=== PATIENT | male | born 1990 | race Caucasian/White ===

== ENCOUNTER 2018-07-16 08:56 | Emergency (ER) | payer MEDICARE, MEDICAID ==
[2018-07-16] MEDS ORDERED: DIPH/PERTUSS(ACELL)/TETANUS VAC/PF 0.5 ML SYR (>=10YO) IM ONE (09:10)
--- NOTE | 2018-07-16 09:14 | ER Document Report ---
ED General - General Chief Complaint: Psych Problem Stated Complaint: SWOLLEN FEET Time Seen by Provider: 07/16/18 09:01 - HPI Notes: Patient is a 28-year-old male that presents to the emergency department for chief complaint of feet swelling and left elbow pain. Patient reports 5 days ago he elbowed a wall. He has not had a tetanus vaccine since 2004. He states that he cut his elbow and is having pain around the cut. He denies any pain with range of motion of the left elbow or any numbness and weakness in the left upper extremity. He describes the pain as mild. Patient also notes some swelling in his feet but is not sure how long they have been like that. He is accompanied by police from longterm, they do not have any report of previous edema on his feet and cannot provide any further information on his edema. He denies any lower extremity injury or pain. He denies fevers, chills, shortness of breath, chest pain, nausea, vomiting and abdominal pain. Patient is talking to someone named "Yasmine" in the room, he denies visual and auditory hallucinations. When I asked him who was noted and was he states "I do not know". When I asked him if he is here with us he states "maybe" Past Medical History: Bipolar Past Surgical History: Negative Social History: Daily tobacco. Denies drugs and alcohol Family History: Reviewed and noncontributory for presenting illness Allergies: Reviewed, see documented allergy list. REVIEW OF SYSTEMS: CONSTITUTIONAL : No fever No chills No diaphoresis No recent illness EENT: No vision changes No congestion No sore throat CARDIOVASCULAR: No chest pain No palpitations RESPIRATORY: No shortness of breath No cough No difficulty breathing GASTROINTESTINAL: No abdominal pain No nausea No vomiting No diarrhea GENITOURINARY: No dysuria No hematuria No difficulty urinating MUSCULOSKELETAL: No back pain No leg pain arm pain Leg edema SKIN: No rashes No lesions LYMPHATIC: No swollen, enlarged glands. NEUROLOGICAL: No lightheadedness No headache No weakness No paresthesias PSYCHIATRIC: No anxiety No depression PHYSICAL EXAMINATION: Vital signs reviewed, nursing noted reviewed. GENERAL: Well-appearing, well-nourished and in no acute distress. HEAD: Atraumatic, normocephalic. EYES: Eyes appear normal, extraocular movements intact, sclera anicteric, conjunctiva are normal. ENT: nares patent, oropharynx clear without exudates. Moist mucous membranes. NECK: Normal range of motion, supple without lymphadenopathy LUNGS: Breath sounds have mild end expiratory wheezing, no tachypnea, no accessory muscle use or respiratory distress HEART: Regular rate and rhythm without murmurs ABDOMEN: Soft, nontender, normoactive bowel sounds. No rebound, guarding, or rigidity. No masses appreciated. EXTREMITIES: Normal range of motion and no bony tenderness to left elbow. Nontender, good range of motion, +2 pitting edema bilateral lower extremities from feet just distal to knees, symmetric bilaterally. No calf tenderness. No lower extremity erythema. NEUROLOGICAL: No focal neurological deficits. Moves all extremities spontaneously Motor and sensory grossly intact on exam. PSYCH: Normal mood, flat affect. SKIN: Warm, Dry, normal turgor, 0.5 cm linear superficial abrasion to lateral left elbow with no active bleeding, scab overlying healing well. No surrounding erythema. Past Medical History - Social History Smoking Status: Current Every Day Smoker Family History: Reviewed & Not Pertinent Physical Exam - Vital signs Vitals: Temp Pulse Resp BP Pulse Ox 97.4 F 84 18 106/92 H 97 07/16/18 09:34 07/16/18 09:34 07/16/18 09:34 07/16/18 09:34 07/16/18 09:34 Course - Re-evaluation Re-evalutation: 07/16/18 09:13 Vitals reviewed. Nursing notes reviewed. Patient appears to be having a conversation with someone named "Yasmine" in the room. He denies any hallucinations or seeing this being. Patient has a history of bipolar as provided by police records. He is not currently on any medications daily. He denies suicidal and homicidal ideations. His left elbow has an abrasion overlying and tetanus vaccine was updated. The abrasion is healing well. He has no bony tenderness or deformity to the left elbow and x-rays are not currently indicated as fracture is not suspected. Venous duplex of the lower extremity will be obtained to evaluate for DVT as a cause of his peripheral edema. Psych consult was placed. 07/16/18 11:39 Venous duplex of bilateral lower extremities is negative. Patient's lab work is unremarkable. He was evaluated by psych who recommends Zyprexa and Cogentin for his bipolar with psychotic features. Patient will be given the first dose of these medications in the emergency room. He is resting comfortably and in no acute distress. He is not acutely psychotic and a harm to himself or others. He will be discharged back to snf in stable condition. Laboratory 07/16/18 07/16/18 09:30 09:30 WBC 4.9 RBC 4.76 Hgb 14.4 Hct 42.6 MCV 90 MCH 30.4 MCHC 33.9 RDW 14.8 H Plt Count 246 Seg Neutrophils % 61.5 Lymphocytes % 26.0 Monocytes % 10.3 Eosinophils % 1.4 Basophils % 0.8 Absolute Neutrophils 3.0 Absolute Lymphocytes 1.3 Absolute Monocytes 0.5 Absolute Eosinophils 0.1 Absolute Basophils 0.0 Sodium 142.7 Potassium 4.3 Chloride 108 H Carbon Dioxide 26 Anion Gap 9 BUN 11 Creatinine 0.70 Est GFR ( Amer) > 60 Est GFR (Non-Af Amer) > 60 Glucose 95 Calcium 9.7 Total Bilirubin 0.9 Direct Bilirubin 0.2 Neonat Total Bilirubin Not Reportable Neonat Direct Bilirubin Not Reportable Neonat Indirect Bili Not Reportable AST 23 ALT 27 Alkaline Phosphatase 54 Total Protein 6.5 Albumin 4.4 Salicylates < 1.0 L Acetaminophen < 10 L Serum Alcohol < 10 Venous Doppler Study 07/16/18 09:09 IMPRESSION: NO EVIDENCE DVT OR SVT IN EITHER LEG. - Vital Signs Vital signs: Temp Pulse Resp BP Pulse Ox 97.4 F 84 18 106/92 H 97 07/16/18 09:34 07/16/18 09:34 07/16/18 09:34 07/16/18 09:34 07/16/18 09:34 - Laboratory Result Diagrams: 07/16/18 09:30 07/16/18 09:30 Laboratory results interpreted by me: 07/16/18 07/16/18 09:30 09:30 RDW 14.8 H Chloride 108 H Salicylates < 1.0 L Acetaminophen < 10 L - EKG Interpretation by Me Additional EKG results interpreted by me: 07/16/18 10:03 Interpreted by myself [id number]: Sinus bradycardia, rate 57, normal axis, no ectopy, baseline artifact, no STEMI Discharge - Discharge Clinical Impression: Bipolar disorder with psychotic features, Dependent edema Arm abrasion Qualifiers: Encounter type: initial encounter Laterality: left Qualified Code(s): S40.812A - Abrasion of left upper arm, initial encounter Condition: Stable Disposition: HOME, SELF-CARE Instructions: Dependent Edema ([facility]), Abrasions ([facility]) Additional Instructions: Please return to the emergency department if you have any worsening, or concern of your symptoms. Please return to the emergency department if you develop chest pain, difficulty breathing, severe abdominal pain, or ongoing vomiting. Please follow-up with your primary care physician in 2-3 days and any other recommended physicians. If prescribed, take all medications as directed. If you have any questions or concerns do not hesitate to return the emergency department for evaluation. Prescriptions: Benztropine Mesylate [Cogentin 1 mg Tablet] 1 tab PO DAILY #21 tab Olanzapine [Zyprexa 5 mg Tablet] 5 mg PO Q12 21 Days tablet
[2018-07-16 09:53] LABS: ABSOLUTE EOSINOPHILS # (AUTO) 0.1 10^3/uL (0.0-0.6); ABSOLUTE LYMPHOCYTES (AUTO) 1.3 10^3/uL (0.5-4.7); ABSOLUTE MONOCYTES (AUTO) 0.5 10^3/uL (0.1-1.4); BASOPHILS % (AUTO) 0.8 % (0-2); EOSINOPHILS % (AUTO) 1.4 % (0-6); HEMATOCRIT 42.6 % (37.9-51.0); HEMOGLOBIN 14.4 g/dL (13.5-17.0); MEAN CORPUSCULAR HEMOGLOBIN 30.4 pg (27.0-33.4); MEAN CORPUSCULAR HGB CONC 33.9 g/dL (32.0-36.0); MEAN CORPUSCULAR VOLUME 90 fl (80-97); MONOCYTES % (AUTO) 10.3 % (3-13); PLATELET COUNT 246 10^3/uL (150-450); RED BLOOD COUNT 4.76 10^6/uL (4.35-5.55); RED CELL DISTRIBUTION WIDTH 14.8 % (11.5-14.0); SEGMENTED NEUTROPHILS % (AUTO) 61.5 % (42-78); TOTAL CELLS COUNTED % (AUTO) 100 %; WHITE BLOOD COUNT 4.9 10^3/uL (4.0-10.5)
[2018-07-16 10:10] LABS: ALANINE AMINOTRANSFERASE 27 U/L (21-72); ALBUMIN 4.4 g/dL (3.5-5.0); ALKALINE PHOSPHATASE 54 U/L (38-126); ANION GAP 9 (5-19); ASPARTATE AMINO TRANSFERASE 23 U/L (17-59); BILIRUBIN,DIRECT 0.2 mg/dL (0.0-0.4); BILIRUBIN,TOTAL 0.9 mg/dL (0.2-1.3); BLOOD UREA NITROGEN 11 mg/dL (7-20); CALCIUM 9.7 mg/dL (8.4-10.2); CARBON DIOXIDE 26 mmol/L (22-30); CHLORIDE 108 mmol/L (98-107); GLUCOSE 95 mg/dL (75-110); POTASSIUM 4.3 mmol/L (3.6-5.0); SODIUM 142.7 mmol/L (137-145); TOTAL PROTEIN 6.5 g/dL (6.3-8.2)
[2018-07-16 10:12] LABS: ACETAMINOPHEN < 10 ug/mL (10-30); ALCOHOL < 10 mg/dL (NONE DETECTED); SALICYLATE < 1.0 mg/dL (2.0-20.0)
--- NOTE | 2018-07-16 10:38 | RADIOLOGY REPORT (SQ) ---
EXAM DESCRIPTION: VENOUS BILATERAL LOWER COMPLETED DATE/TIME: 07/16/2018 10:18 am REASON FOR STUDY: leg edema , with lower extremity swelling COMPARISON: None. TECHNIQUE: Dynamic and static hernandes scale and color images acquired of both lower extremity venous sy stems. Selected spectral images acquired with additional compression and augmentation maneuvers. Imag es stored on PACS. LIMITATIONS: None. FINDINGS: RIGHT LEG COMMON FEMORAL AND FEMORAL: Normal phasicity, compression and augmentation. No visualized echogenic m aterial on hernandes scale. No defects on color images. POPLITEAL: Normal compression and augmentation. No visualized echogenic material on hernandes scale. No de fects on color images. CALF VESSELS: Normal compression and augmentation. No visualized echogenic material on hernandes scale. No defects on color image. GSV AND SSV: Normal compression. No visualized echogenic material on hernandes scale. No defects on color images. ANY DEEP VENOUS INSUFFICIENCY: No reflux on Valsalva. ANY EVIDENCE OF POPLITEAL CYST: No. OTHER: No other significant finding. LEFT LEG COMMON FEMORAL AND FEMORAL: Normal phasicity, compression and augmentation. No visualized echogenic m aterial on hernandes scale. No defects on color images. POPLITEAL: Normal compression and augmentation. No visualized echogenic material on hernandes scale. No de fects on color images. CALF VESSELS: Normal compression and augmentation. No visualized echogenic material on hrenandes scale. No defects on color images. GSV AND SSV: Normal compression. No visualized echogenic material on hernandes scale. No defects on color images. ANY DEEP VENOUS INSUFFICIENCY: No reflux on Valsalva. ANY EVIDENCE POPLITEAL CYST: No. OTHER: No other significant finding. IMPRESSION: NO EVIDENCE DVT OR SVT IN EITHER LEG. TECHNICAL DOCUMENTATION: JOB ID: [id number] [employer]- All Rights Reserved Reading location - IP/workstation name: [email or web address]
--- NOTE | 2018-07-16 10:47 | PSYCHOLOGICAL NOTE ---
Psych Note - Psych Note Date seen by psych provider: 07/16/18 Time seen by psych provider: 09:30 Psych Note: Reason for Consult: Psychosis Patient is a 28-year-old male that presents to the emergency department for chief complaint of feet swelling and left elbow pain. During physician evaluation patient started to present with symptoms of psychosis. Patient reports that he has a diagnosis of bipolar and asked to be provided Zyprexa and Artane. He stated he has been inpatient psychiatric treatment multiple times listing [facility], and [facility]. He disclosed that he has been taking his medications; however, believes he was just incarcerated yesterday (07/15/2018) but actually has been in prison for the last 3 weeks. Patient is alert and orientated to person and place. Patient is observed talking to himself. When introduced to clinician he had difficult time with organized linear conversation. It is noted the patient was able to provide information after asking questions in multiple ways with frequent derailments. Patient's eye contact is poor. Conversational speech indicates some flight of thought. Intellectual abilities appear to be within the average range. Attention and concentration is poor. Insight, judgment, impulse control is fair as evidenced by patient requesting assistance with medication. Medication recommendations per [facility]'s contracted psychiatrist Dr. Jr HERNANDEZ are as follows Zyprexa 10 mg once Zyprexa ODT 5 mg twice daily Cogentin 1 mg daily 296.80 (F31.9) unspecified bipolar and related disorder per history provided by patient Impression/Plan: Patient is cleared from acute psychiatric services. Patient is currently incarcerated; inpatient psychiatric treatment would not be appropriate. He can receive appropriate treatment and supervision while incarcerated. Medication recommendations have been provided. Dr. Osorio was consulted and care management this patient; attending physicians in agreement with recommendations and disposition.
[2018-07-16] MEDS ORDERED: BENZTROPINE MESYLATE 1 MG TABLET PO ONE (11:36)
[2018-07-16] MEDS ORDERED: OLANZAPINE 5 MG TABLET PO ONE (11:36)
[2018-07-16 11:55] VITALS: BP 118/69
--- NOTE | 2018-07-16 21:08 | EKG REPORT ---
SEVERITY:- ABNORMAL ECG - NONSPECIFIC T ABNORMALITIES,IN BASAL LATERAL LEADS SINUS RHYTHM : Confirmed by: Ibeth Panchal MD 16-Jul-2018 21:07:17
== END 2018-07-16 11:55 | disposition home or self-care (01) ==
LOC: ER 08:56
DX: S40.812A Abrasion of left upper arm, initial encounter (principal); W22.09XA Striking against other stationary object, initial encounter; F31.89 Other bipolar disorder; R60.9 Edema, unspecified
CPT/HCPCS: 93005; 99285; 36415; 80307 ×3; 85025; 80053; 93970; 93010; A9270 ×2